=== PATIENT | male | born 1985 | race Caucasian/White ===

== ENCOUNTER 2021-01-19 13:17 | Inpatient (IN) | payer BC ==
[~2021-01-19] VITALS: Ht 185.4 cm; Wt 127.3 kg
[2021-01-19] MEDS ORDERED: QUET25TA PO (20:17)
[2021-01-19] MEDS ORDERED: FLUO20CA36 PO (20:17)
[2021-01-19] MEDS ORDERED: GABA-1181 PO (20:17)
[2021-01-19] MEDS ORDERED: INFLUENZA VIRUS VACCINE QVS 2021-22 (6MO+)/PF 60 MCG/0.5 ML SYRINGE IM. ONE (23:45)
[2021-01-19] MEDS ORDERED: ZOLPIDEM TARTRATE 10 MG TABLET PO PRN (23:45)
[2021-01-19] MEDS ORDERED: PNEUMOCOCCAL VACCINE POLYVALENT 0.5 ML VIAL [PPSV23] IM. ONE (23:45)
[2021-01-19] MEDS ORDERED: HALOPERIDOL 5 MG TABLET PO PRN (23:45)
[2021-01-20 00:46] VITALS: BP 144/92
[2021-01-20 07:55] LABS: BASOPHILS % (AUTO) 0.7 % (0.0-2.0); EOSINOPHILS % (AUTO) 3.9 % (1.0-6.0); HEMATOCRIT 40.5 % (41-53); HEMOGLOBIN 13.9 g/dL (13.5-17.5); LYMPHOCYTES # (AUTO) 1.7 K/uL (1.0-4.8); LYMPHOCYTES % (AUTO) 29.1 % (22.0-44.0); MEAN CORPUSCULAR HEMOGLOBIN 30.9 pg (26.0-34.0); MEAN CORPUSCULAR HGB CONC 34.3 G/dL (31.0-37.0); MEAN CORPUSCULAR VOLUME 90 fL (80-100); MONOCYTES # (AUTO) 0.7 K/uL (0.1-1.0); MONOCYTES % (AUTO) 11.6 % (2.0-9.0); NEUTROPHILS # (AUTO) 3.2 K/uL (1.8-7.7); NEUTROPHILS % (AUTO) 54.7 % (40.0-70.0); PLATELET COUNT (AUTO) 101 K/uL (150-450); RED BLOOD CELL COUNT(AUTO) 4.49 MIL/uL (4.50-5.90); RED CELL DISTRIBUTION WIDTH 15.8 % (11.5-14.5)
[2021-01-20 08:07] VITALS: BP 130/74
[2021-01-20 08:17] LABS: ALANINE AMINOTRANSFERASE 41 U/L (12-78); ALKALINE PHOSPHATASE 96 U/L (46-116); ANION GAP 7 mmol/L (8-16); ASPARTATE AMINOTRANSFERASE 51 U/L (15-37); BILIRUBIN,TOTAL 2.1 mg/dL (0.1-1.0); CALCIUM, TOTAL 8.5 mg/dL (8.8-10.5); CARBON DIOXIDE 26 mmol/L (22-29); CHLORIDE 109 mmol/L (98-107); CHOL/HDL RATIO 3.6 (4.2-7.3); CHOLESTEROL 151 mg/dL (131-200); CREATININE 0.87 mg/dL (0.60-1.30); FREE T4 (FREE THYROXINE) 1.19 ng/dL (0.76-1.46); GLOMERULAR FILTR. RATE CALC > 60 mL/min (>60); GLUCOSE,RANDOM 78 mg/dL (70-110); HDL CHOLESTEROL 42 mg/dL (40-60); LDL CHOL (CALC.) 94 mg/dL (0-130); POTASSIUM 3.6 mmol/L (3.5-5.1); SODIUM SERUM 142 mmol/L (136-145); TOTAL PROTEIN, SERUM 6.8 g/dL (6.4-8.2); TRIGLYCERIDES 74 mg/dL (15-150); UREA NITROGEN, BLOOD 11 mg/dL (7-18)
[2021-01-20] MEDS ORDERED: MAGNESIUM HYDROXIDE SUSPENSION 30 ML UDCUP PO PRN (10:45)
[2021-01-20] MEDS ORDERED: LOPERAMIDE HCL 2 MG CAPSULE PO PRN (10:45)
[2021-01-20] MEDS ORDERED: IBUPROFEN 600 MG TABLET PO PRN (10:45)
[2021-01-20] MEDS ORDERED: ALBUTEROL SULFATE HFA 90 MCG/PUFF 8 GM INHALER IH PRN (10:45)
[2021-01-20] MEDS ORDERED: ONDANSETRON HCL 4 MG TABLET PO PRN (10:45)
[2021-01-20] MEDS ORDERED: BACITRACIN 28 GM OINTMENT TP PRN (10:45)
[2021-01-20] MEDS ORDERED: CloNIDine HCL 0.1 MG TABLET PO PRN (10:45)
[2021-01-20] MEDS ORDERED: OMEPRAZOLE 20 MG CAPSULE PO PRN (10:45)
[2021-01-20] MEDS ORDERED: ACETAMINOPHEN 325 MG TABLET PO PRN (10:45)
[2021-01-20] MEDS ORDERED: PETROLATUM,WHITE 28 GM JELLY TP PRN (10:45)
[2021-01-20] MEDS ORDERED: DOCUSATE SODIUM 100 MG CAPSULE PO PRN (10:45)
[2021-01-20] MEDS ORDERED: MAG HYDROX/AL HYDROX/SIMETH ES 30 ML SUSPENSION UDCUP PO PRN (10:45)
[2021-01-20] MEDS ORDERED: BENZOCAINE/MENTHOL LOZENGE PO PRN (10:45)
[2021-01-20] MEDS: GABAPENTIN 300 MG CAPSULE PO SCH ×2 (12:48→17:11)
[2021-01-20] MEDS: LORazepam 2 MG TABLET PO PRN ×2 (12:58→17:11)
[2021-01-20 16:16] VITALS: BP 130/86
[2021-01-21 06:35] VITALS: BP 144/81
[2021-01-21 08:10] VITALS: BP 139/83
[2021-01-21] MEDS: GABAPENTIN 300 MG CAPSULE PO SCH ×3 (09:13→17:15)
[2021-01-21] MEDS: LORazepam 2 MG TABLET PO PRN ×2 (13:27→20:34)
[2021-01-21 16:10] VITALS: BP 130/80
[2021-01-21] MEDS: QUEtiapine FUMARATE 300 MG TABLET PO SCH (20:08)
[2021-01-22 04:33] VITALS: BP 142/86
[2021-01-22 08:08] VITALS: BP 133/82
[2021-01-22] MEDS: GABAPENTIN 300 MG CAPSULE PO SCH ×3 (08:38→16:49)
[2021-01-22] MEDS: LORazepam 2 MG TABLET PO PRN ×2 (12:42→17:59)
[2021-01-22 16:00] VITALS: BP 125/63
[2021-01-22] MEDS: QUEtiapine FUMARATE 300 MG TABLET PO SCH (20:30)
[2021-01-23 02:06] VITALS: BP 146/93
[2021-01-23 08:20] VITALS: BP 100/65
[2021-01-23] MEDS: GABAPENTIN 300 MG CAPSULE PO SCH ×2 (08:34→12:20)
[2021-01-23] MEDS: LORazepam 2 MG TABLET PO PRN (09:15)
== END 2021-01-23 13:00 | disposition home or self-care (01) | DRG 885 ==
LOC: B3A 23:40
PROVIDERS: ADMIT Psychiatry & Neurology Psychiatry; ATTEND Psychiatry & Neurology Psychiatry
DX: F25.9 Schizoaffective disorder, unspecified (principal); F41.9 Anxiety disorder, unspecified; F10.10 Alcohol abuse, uncomplicated; F32.9 Major depressive disorder, single episode, unspecified; G47.00 Insomnia, unspecified; F12.90 Cannabis use, unspecified, uncomplicated; K59.00 Constipation, unspecified; Z79.899 Other long term (current) drug therapy; Z71.41 Alcohol abuse counseling and surveillance of alcoholic
CPT/HCPCS: 80053; 80061; 83036; 84436; 84439; 84443; 85025; 90686